=== PATIENT | male | born 1955 | race Caucasian/White ===

== ENCOUNTER 2023-09-11 13:29 | Outpatient (CLI) | payer MEDICARE, OTHER ==
[2023-09-11 15:11] LABS: Hematocrit 41.3 % (38.8-50.0); Hemoglobin 14.5 g/dL (13.5-17.5); Mean Corpuscular HGB CONC 35.1 g/dL (32.0-36.0); Mean Corpuscular Hemoglobin 32.2 pg (27.0-33.0); Mean Corpuscular Volume 91.8 fl (81.2-95.1); Mean Platelet Volume 9.8 fl (7.4-10.4); Platelet Count 232 10x3/uL (150-450); White Blood Cell (WBC) Count 6.6 10x3/uL (3.5-10.5)
[2023-09-11 15:54] LABS: Anion Gap 16 mmol/L (10-20); BUN (Urea Nitrogen) 7 mg/dL (8.4-25.7); Calc. Creatinine Clearance 0 mL/min (70-130); Calcium 9.4 mg/dL (7.8-10.44); Carbon Dioxide 24 mmol/L (23-31); Chloride 104 mmol/L (98-107); Estimated GFR 96; Glucose 90 mg/dL (80-115); Potassium 3.5 mmol/L (3.5-5.1); Sodium 140 mmol/L (136-145)
== END 2023-09-11 13:30 | disposition home or self-care (01) ==
LOC: CSHLAB 13:29
PROVIDERS: ATTEND Surgery
DX: Z01.818 Encounter for other preprocedural examination (principal); K40.90 Unilateral inguinal hernia, without obstruction or gangrene, not specified as recurrent
CPT/HCPCS: 80048; 85027; 93005; 93010

== ENCOUNTER 2023-09-14 08:51 | Day surgery (SDC) | payer MEDICARE, OTHER ==
[2023-09-11 14:22] VITALS: BMI 21.5
[2023-09-14] MEDS ORDERED: Rocuronium Bromide 10 MG/ML (10ML VIAL) ONE (10:56)
[2023-09-14] MEDS ORDERED: PROPOFOL 20 ML ONE (10:56)
[2023-09-14] MEDS ORDERED: Lidocaine 2% PF 5 ML VIAL ONE (10:56)
[2023-09-14] MEDS ORDERED: Fentanyl 250 MCG/5 ML VIAL ONE (10:57)
[2023-09-14] MEDS ORDERED: EPINEPHrine 1 MG/ML VIAL ONE (11:23)
[2023-09-14] MEDS ORDERED: Bupivacaine PF 0.5% 30 ML VIAL ONE (11:24)
[2023-09-14] MEDS ORDERED: SUGAMMADEX SODIUM 200 MG/2 ML VIAL ONE (11:35)
[2023-09-14] MEDS ORDERED: CEFAZOLIN 2 GM VIAL ONE (11:38)
[2023-09-14] MEDS ORDERED: Ondansetron PF 4 MG/2 ML Vial ONE (12:05)
[2023-09-14] MEDS ORDERED: Acetaminophen 325 MG TAB PO PRN (12:43)
[2023-09-14] MEDS ORDERED: HYDROcodone/Acetaminophen 5/325 mg Tablet PO PRN ×2 (12:43)
[2023-09-14] MEDS ORDERED: Meperidine HCl/PF 25 MG (1 mL) VIAL ONE (12:49)
== END 2023-09-14 14:20 | disposition home or self-care (01) ==
LOC: CSHSDC 08:51
PROVIDERS: ATTEND Surgery
PROC: 0YU54JZ Supplement Right Inguinal Region with Synthetic Substitute, Percutaneous Endoscopic Approach (ICD-10-PCS; principal; 2023-09-14)
DX: K40.90 Unilateral inguinal hernia, without obstruction or gangrene, not specified as recurrent (principal); I10 Essential (primary) hypertension; Z79.899 Other long term (current) drug therapy; Z87.891 Personal history of nicotine dependence
CPT/HCPCS: 49650; J0171; C1781; J0665; J2001; J2175; J2405; J2704; J3010